=== PATIENT | female | born 1975 | race Caucasian/White ===

== ENCOUNTER 2016-07-07 19:46 | Emergency (ER) | payer OTHER ==
[2016-07-07 20:49] LABS: BASOPHIL 1.4 % (0-2); EOSINOPHIL 5.7 % (0-5); HCT 34.6 % (37.0-47.0); HGB 11.3 g/dl (12.5-16.0); LYMPHOCYTE 34.5 % (15-48); MCH 29.1 pg (25.0-31.0); MCHC 32.7 g/dL (32.0-36.0); MCV 89.2 fL (78.0-100.0); MONOCYTE 8.8 % (0-12); MPV 11.4 fL (6.0-9.5); NEUTROPHIL 49.6 % (41-80); PLT 276 K/uL (150-400); RBC 3.88 M/uL (4.20-5.40); RDW 13.4 % (11.5-14.0); WBC 7.2 K/uL (4.0-10.5)
[2016-07-07 20:53] LABS: INR 1.04 (0.9-1.2); PROTHROMBIN TIME 13.2 SECONDS (11.7-14.0)
[2016-07-07 20:54] LABS: BILIRUBIN NEGATIVE (NEGATIVE); BLOOD NEGATIVE Ery/uL (NEGATIVE); CLARITY CLOUDY (CLEAR); COLOR STRAW (YELLOW); GLUCOSE (U) 1+ mg/dL (NORMAL); KETONE (U) NEGATIVE (NEGATIVE); LEUKOCYTES 2+ Leu/uL (NEGATIVE); NITRITE NEGATIVE (NEGATIVE); PROTEIN NEGATIVE (NEGATIVE); SPECIFIC GRAVITY 1.025 (1.001-1.030); UROBILINOGEN 0.2 mg/dL (0.2-1.0); pH 5.5 (5.0-9.0)
[2016-07-07 21:00] LABS: BACTERIA 4+
[2016-07-07 21:01] LABS: URINARY WBC 20-50
[2016-07-07 21:01] LABS: ALBUMIN 4.3 g/dL (3.5-5.0); BILIRUBIN - TOTAL 0.2 mg/dL (0.1-1.0); CREATININE 1.1 mg/dL (0.5-1.0); MAGNESIUM 2.12 mg/dL (1.40-2.10); POTASSIUM 4.3 mmol/L (3.5-5.1); TOTAL PROTEIN 7.3 g/dL (6.4-8.3)
== END 2016-07-07 23:46 | disposition home or self-care (01) ==
LOC: FER 19:46
PROVIDERS: Emergency Medicine Emergency Medical Services
DX: N39.0 Urinary tract infection, site not specified (principal); R55 Syncope and collapse; E11.40 Type 2 diabetes mellitus with diabetic neuropathy, unspecified; G25.81 Restless legs syndrome; I51.9 Heart disease, unspecified; Z79.82 Long term (current) use of aspirin; Z79.4 Long term (current) use of insulin; Z95.1 Presence of aortocoronary bypass graft; Z95.5 Presence of coronary angioplasty implant and graft; Z89.422 Acquired absence of other left toe(s); Z89.421 Acquired absence of other right toe(s); Z98.890 Other specified postprocedural states; Z79.899 Other long term (current) drug therapy
CPT/HCPCS: 36415; 71010; 80053; 81001; 83735; 84484; 85025; 85610; 85730; 86140; 87076; 87088; 87186; 93005

== ENCOUNTER → 2020-08-22 | Day surgery (SDC) | payer MEDICARE ==
[~2020-08-22] VITALS: Ht 175.3 cm; Wt 89.5 kg
[~2020-08-22] MED LIST: ASPIRIN EC81 MG PO; BRIN20TA PO; BUMEX1 MG PO; COREG 6.25MG6.25 MG PO; FAMOTIDINE40 MG PO; HUMULIN N100 UNIT/2 SC; IRON325 M1 PO; LIPITOR40 MG PO; LYRICA100 MG PO; PLAVIX75 MG PO; PREDNISONE 20MG20 MG PO; PRINIVIL10 MG PO; ROPINIROLE HCL4 MG PO; SEROQUEL50 MG PO; TOUJEO MAX300 UNIT/1 SC; TRULICITY0.75 MG/0. SC; UROCIT-K10 MEQ PO; WELLBUTRIN XL150 MG PO; ZETIA10 MG PO
== END | disposition home or self-care (01) ==
LOC: FAS 08:41
DX: Z12.11 Encounter for screening for malignant neoplasm of colon (principal); I13.0 Hypertensive heart and chronic kidney disease with heart failure and stage 1 through stage 4 chronic kidney disease, or unspecified chronic kidney disease; I50.9 Heart failure, unspecified; N18.30 Chronic kidney disease, stage 3 unspecified; I25.2 Old myocardial infarction; I73.9 Peripheral vascular disease, unspecified; E11.65 Type 2 diabetes mellitus with hyperglycemia; E11.22 Type 2 diabetes mellitus with diabetic chronic kidney disease; E11.51 Type 2 diabetes mellitus with diabetic peripheral angiopathy without gangrene; E11.3599 Type 2 diabetes mellitus with proliferative diabetic retinopathy without macular edema, unspecified eye; E78.00 Pure hypercholesterolemia, unspecified; K21.9 Gastro-esophageal reflux disease without esophagitis; G43.909 Migraine, unspecified, not intractable, without status migrainosus; F41.9 Anxiety disorder, unspecified; M19.90 Unspecified osteoarthritis, unspecified site; Z20.822 Contact with and (suspected) exposure to COVID-19; Z95.1 Presence of aortocoronary bypass graft; Z98.890 Other specified postprocedural states; Z80.0 Family history of malignant neoplasm of digestive organs; Z80.8 Family history of malignant neoplasm of other organs or systems; Z79.899 Other long term (current) drug therapy; Z96.41 Presence of insulin pump (external) (internal); Z87.891 Personal history of nicotine dependence
CPT/HCPCS: 84703; J2250; J2704; J7120

== ENCOUNTER 2021-01-09 08:26 | Emergency (ER) | payer MEDICARE ==
[~2021-01-09 08:26] MED LIST changes: -PREDNISONE 20MG20 MG PO
[2021-01-09] MEDS ORDERED: PREDNISONE 20MG20 MG PO (09:26)
== END 2021-01-09 09:32 | disposition home or self-care (01) ==
LOC: FER 08:26
DX: M54.16 Radiculopathy, lumbar region (principal); I10 Essential (primary) hypertension
CPT/HCPCS: 72110